=== PATIENT | male | born 1955 | race Caucasian/White ===

== ENCOUNTER 2018-07-14 18:41 | Emergency (ER) | payer BC ==
[2018-07-14] MEDS ORDERED: ASPIRIN 81 MG PO STA (19:20)
[2018-07-14] MEDS ORDERED: SODIUM CHLORIDE 0.9% 1,000 ML IV STA (19:20)
[2018-07-14 19:48] LABS: Basophils % (A) 0 %; Eosinophils # (A) 0.1 k/uL (0-0.7); Eosinophils % (A) 3 %; HCT 40.8 % (39.0-53.0); HGB 13.8 gm/dL (13.0-17.5); Lymphocytes # (A) 1.1 k/uL (1.0-4.8); Lymphocytes % (A) 28 %; MCH 32.2 pg (25.0-35.0); MCV 94.9 fL (80.0-100.0); Mean Platelet Volume 6.4; Monocytes # (A) 0.3 k/uL (0-1.0); Monocytes % (A) 7 %; Neutrophils # (A) 2.4 k/uL (1.3-7.7); Neutrophils % (A) 60 %; Platelet Count 139 k/uL (150-450); WBC 4.1 k/uL (3.8-10.6)
--- NOTE | 2018-07-14 20:00 | XR ---
EXAMINATION TYPE: XR chest 2V DATE OF EXAM: 07/14/2018 COMPARISON: NONE HISTORY: Chest pain TECHNIQUE: Frontal and lateral views of the chest are obtained. FINDINGS: Heart and mediastinum are normal. Lungs are clear. Diaphragm is normal. There are chest le ads. Bony thorax is intact. IMPRESSION: Normal chest.
[2018-07-14 20:06] LABS: ALT 28 U/L (21-72); AST 33 U/L (17-59); Albumin 4.3 g/dL (3.5-5.0); Alkaline Phosphatase 37 U/L (38-126); Amylase 32 U/L (30-110); Anion Gap 10 mmol/L; Blood Urea Nitrogen 14 mg/dL (9-20); Calcium 9.2 mg/dL (8.4-10.2); Carbon Dioxide 24 mmol/L (22-30); Chloride 108 mmol/L (98-107); Glucose 93 mg/dL (74-99); Lipase 77 U/L (23-300); Magnesium 2.1 mg/dL (1.6-2.3); Potassium 4.5 mmol/L (3.5-5.1); Sodium 142 mmol/L (137-145); Total Bilirubin 0.5 mg/dL (0.2-1.3)
[2018-07-14 20:08] LABS: INR 0.9 (<1.2); Prothrombin Time 9.7 sec (9.0-12.0)
[2018-07-14 20:09] LABS: Partial Thromboplastin Time 21.8 sec (22.0-30.0)
[2018-07-14 20:10] LABS: Creatine Kinase 177 U/L (55-170)
[2018-07-14 20:21] LABS: Creatine Kinase MB 1.3 ng/mL (0.0-2.4)
[2018-07-14 20:22] LABS: Troponin I <0.012 ng/mL (0.000-0.034)
--- NOTE | 2018-07-14 21:19 | ED ---
General Adult HPI - General Chief complaint: Shortness of Breath Stated complaint: aspirated Time Seen by Provider: 07/14/18 19:00 Source: patient, RN notes reviewed Mode of arrival: ambulatory Limitations: no limitations - History of Present Illness Initial comments: 62-year-old male with a past medical history of GERD presents to the emergency department for a chief complaint of a choking episode occurring about one hour prior to arrival. Patient states he had 4 mixed drinks earlier today. He states that his family will come up from sleeping on the couch. His family states he seems somewhat confused at the time. Agree that this could be due to the alcohol. According to patient and family, he started to drink some water and began to choke. At that time he coughed up some food. During this choking attack family states he did appear pale, no diaphoresis. Patient denies any chest pain or shortness of breath. Patient denies any radiating chest pain. Patient does not have a cardiac history. He is not a smoker, no diabetes. Patient has no other complaints at this time including shortness of breath, chest pain, abdominal pain, nausea or vomiting, headache, or visual changes. - Related Data Allergies Allergy/AdvReac Type Severity Reaction Status Date / Time No Known Allergies Allergy Verified 07/14/18 18:46 Review of Systems ROS Statement: Those systems with pertinent positive or pertinent negative responses have been documented in the HPI. ROS Other: All systems not noted in ROS Statement are negative. Past Medical History Past Medical History: GERD/Reflux History of Any Multi-Drug Resistant Organisms: None Reported Past Surgical History: No Surgical Hx Reported Past Psychological History: No Psychological Hx Reported Smoking Status: Never smoker Past Alcohol Use History: Daily Past Drug Use History: None Reported General Exam Limitations: no limitations General appearance: alert, in no apparent distress (Patient is well-appearing, he is cooperative and pleasant. Holding a conversation without difficulty.) Head exam: Present: atraumatic, normocephalic, normal inspection Eye exam: Present: normal appearance, PERRL, EOMI. Absent: scleral icterus, conjunctival injection, periorbital swelling ENT exam: Present: normal exam, normal oropharynx (Patent, non erythematous, uvula midline), mucous membranes moist Neck exam: Present: normal inspection, full ROM. Absent: tenderness, meningismus, lymphadenopathy Respiratory exam: Present: normal lung sounds bilaterally. Absent: respiratory distress, wheezes, rales, rhonchi, stridor Cardiovascular Exam: Present: regular rate, normal rhythm, normal heart sounds. Absent: systolic murmur, diastolic murmur, rubs, gallop, clicks GI/Abdominal exam: Present: soft, normal bowel sounds. Absent: distended, tenderness, guarding, rebound, rigid Neurological exam: Present: alert, oriented X3, CN II-XII intact Psychiatric exam: Present: normal affect, normal mood Course Vital Signs 07/14/18 18:43 Temperature 97.5 F L Pulse Rate 75 Respiratory 20 Rate Blood Pressure 138/88 O2 Sat by Pulse 96 Oximetry EKG Findings - EKG Comments: EKG Findings:: EKG shows a normal sinus rhythm, ventricular rate 63, OR interval 154, QTc 474, right bundle branch block noted. Medical Decision Making - Medical Decision Making 62-year-old male with a past medical history of GERD, no chronic history presents for a chief complaint of choking episode. Patient began to choke on food earlier today. Patient has not had a scope done by GI. He states this has happened multiple times before. He has had some alcoholic drinks today and appeared somewhat confused when he was awoken from the couch the family became concerned. They do admit that this is possibly related to the alcoholic drinks vitals are within acceptable limits. Patient is well appearing. CBC and CMP are unremarkable. EKG shows a normal sinus rhythm with a ventricular rate of 63. There is right bundle branch block noted which patient was educated to follow up with primary about. Troponin negative. No suspicion for cardiac cause this patient did not have any chest pain shortness of breath and seemed confused only after eating awoken from the couch after having a colic drinks. No diaphoresis. No significant Risk factors. Patient is a never smoker. Chest x-ray negative. Patient currently denying any sensation of foreign body. States he is feeling completely normal. At this time patient will follow up with primary care for right bundle branch block. He will follow up with GI specialist for possible upper endoscopy. He will return if he has any worsening symptoms of shortness of breath, chest pain, or foreign body sensation in throat which he agrees with. Discussed case with Dr. Carlson. - Lab Data Result diagrams: 07/14/18 19:35 07/14/18 19:35 Lab Results 07/14/18 07/14/1818 Range/Units 19:35 19:35 19:35 WBC 4.1 (3.8-10.6) k/uL RBC 4.30 (4.30-5.90) m/uL Hgb 13.8 (13.0-17.5) gm/dL Hct 40.8 (39.0-53.0) % MCV 94.9 (80.0-100.0) fL MCH 32.2 (25.0-35.0) pg MCHC 34.0 (31.0-37.0) g/dL RDW 13.0 (11.5-15.5) % Plt Count 139 L (150-450) k/uL Neutrophils % 60 % Lymphocytes % 28 % Monocytes % 7 % Eosinophils % 3 % Basophils % 0 % Neutrophils # 2.4 (1.3-7.7) k/uL Lymphocytes # 1.1 (1.0-4.8) k/uL Monocytes # 0.3 (0-1.0) k/uL Eosinophils # 0.1 (0-0.7) k/uL Basophils # 0.0 (0-0.2) k/uL PT (9.0-12.0) sec INR (<1.2) APTT (22.0-30.0) sec Sodium 142 (137-145) mmol/L Potassium 4.5 (3.5-5.1) mmol/L Chloride 108 H (98-107) mmol/L Carbon Dioxide 24 (22-30) mmol/L Anion Gap 10 mmol/L BUN 14 (9-20) mg/dL Creatinine 0.89 (0.66-1.25) mg/dL Est GFR (CKD-EPI)AfAm >90 (>60 ml/min/1.73 sqM) Est GFR (CKD-EPI)NonAf >90 (>60 ml/min/1.73 sqM) Glucose 93 (74-99) mg/dL Calcium 9.2 (8.4-10.2) mg/dL Magnesium 2.1 (1.6-2.3) mg/dL Total Bilirubin 0.5 (0.2-1.3) mg/dL AST 33 (17-59) U/L ALT 28 (21-72) U/L Alkaline Phosphatase 37 L (38-126) U/L Total Creatine Kinase 177 H (55-170) U/L CK-MB (CK-2) 1.3 (0.0-2.4) ng/mL CK-MB (CK-2) Rel Index 0.7 Troponin I <0.012 (0.000-0.034) ng/mL Total Protein 7.0 (6.3-8.2) g/dL Albumin 4.3 (3.5-5.0) g/dL Amylase 32 (30-110) U/L Lipase 77 (23-300) U/L 07/14/18 Range/Units 19:35 WBC (3.8-10.6) k/uL RBC (4.30-5.90) m/uL Hgb (13.0-17.5) gm/dL Hct (39.0-53.0) % MCV (80.0-100.0) fL MCH (25.0-35.0) pg MCHC (31.0-37.0) g/dL RDW (11.5-15.5) % Plt Count (150-450) k/uL Neutrophils % % Lymphocytes % % Monocytes % % Eosinophils % % Basophils % % Neutrophils # (1.3-7.7) k/uL Lymphocytes # (1.0-4.8) k/uL Monocytes # (0-1.0) k/uL Eosinophils # (0-0.7) k/uL Basophils # (0-0.2) k/uL PT 9.7 (9.0-12.0) sec INR 0.9 (<1.2) APTT 21.8 L (22.0-30.0) sec Sodium (137-145) mmol/L Potassium (3.5-5.1) mmol/L Chloride (98-107) mmol/L Carbon Dioxide (22-30) mmol/L Anion Gap mmol/L BUN (9-20) mg/dL Creatinine (0.66-1.25) mg/dL Est GFR (CKD-EPI)AfAm (>60 ml/min/1.73 sqM) Est GFR (CKD-EPI)NonAf (>60 ml/min/1.73 sqM) Glucose (74-99) mg/dL Calcium (8.4-10.2) mg/dL Magnesium (1.6-2.3) mg/dL Total Bilirubin (0.2-1.3) mg/dL AST (17-59) U/L ALT (21-72) U/L Alkaline Phosphatase (38-126) U/L Total Creatine Kinase (55-170) U/L CK-MB (CK-2) (0.0-2.4) ng/mL CK-MB (CK-2) Rel Index Troponin I (0.000-0.034) ng/mL Total Protein (6.3-8.2) g/dL Albumin (3.5-5.0) g/dL Amylase (30-110) U/L Lipase (23-300) U/L - EKG Data -: EKG Interpreted by Me (and Dr Carlson) When compared to previous EKG there are: previous EKG unavailable Disposition Clinical Impression: Choked on food Disposition: HOME SELF-CARE Condition: Good Instructions: Esophageal Foreign Body (ED), Food Impaction (ED) Additional Instructions: Please follow up with GI in 1-2 days. Please return to the emergency department if you have any worsening symptoms including foreign body sensation in the throat. Is patient prescribed a controlled substance at d/c from ED?: No Referrals: Jassi Grace DO [Primary Care Provider] - 1-2 days Sarah Rivera MD [STAFF PHYSICIAN] - 1-2 days Time of Disposition: 21:18
[2018-07-14 21:49] VITALS: BP 124/84; PULSE 76; RESP 16; TEMP 98
== END 2018-07-14 21:35 | disposition home or self-care (01) ==
LOC: EC 18:41
DX: T17.928A Food in respiratory tract, part unspecified causing other injury, initial encounter (principal); I45.10 Unspecified right bundle-branch block
CPT/HCPCS: 36415; 71046; 80053; 82150; 82550; 82553; 83690; 83735; 84484; 85025; 85610; 85730; 93005; 96360; 99285

== ENCOUNTER → 2018-11-29 | Outpatient (CLI) | payer BC ==
--- NOTE | 2018-11-30 11:23 | P.STRESS ---
- Stress Test Note Stress Test Results/Findings: Exam Performed: stress echo exercise Exam Date: 11/29/18 Reason for Exam: RBBB Height: 5 ft 9 in Weight: 79.379 kg Protocol: STRESS ECHO Stage: IV Duration of Exercise: 12:00 Resting Heart Rate: 72 Resting Blood Pressure: 144/84 Maximum Achieved Heart Rate: 159 Maximum Achieved Blood Pressure: 175/69 85% PMHR: 135 100% PMHR: 159 METS: 12.1 Technologist Comment: Stress Test Results/Findings: Baseline heart is 72 beats a minute, Baseline blood pressure 144/84 mmHg Baseline twelve-lead ECG shows normal sinus rhythm with a right bundle branch block pattern and occasional PVCs of a left bundle branch block pattern Patient exercised on a Jared protocol for 12 minutes achieving a peak heart rate 159 beats a minute Normal blood pressure response to exercise There was no ECG also ischemia Occasional PVCs continued No nonsustained ventricular tachycardia Baseline 2-D echo images showed normal LV size and systolic function without segmental wall motion abnormalities At peak exercise there was augmentation of overall LV contractility without developing any wall motion abnormalities @Recovery reasonably global LV systolic function with normal Excellent exercise capacity No ECG or echocardiographic evidence for ischemia Occasional PVCs noted post during rest as well as exercise
== END | disposition home or self-care (01) ==
LOC: RADNMMAIN 09:53
PROVIDERS: ATTEND Internal Medicine Cardiovascular Disease
DX: I45.10 Unspecified right bundle-branch block (principal); Z91.89 Other specified personal risk factors, not elsewhere classified; Z82.49 Family history of ischemic heart disease and other diseases of the circulatory system
CPT/HCPCS: 93351

== ENCOUNTER → 2020-02-28 | Outpatient (CLI) | payer BC | END | disposition home or self-care (01) | LOC: LABWHC1 11:04 | PROVIDERS: ATTEND Family Medicine | DX: R05 Cough (principal) | CPT/HCPCS: U0003; C9803 ==

== ENCOUNTER 2023-04-04 23:01 | Emergency (ER) | payer BC, MEDICARE ==
[2023-04-04 23:07] VITALS: RESP 19
[2023-04-04 23:27] LABS: Basophils % (A) 0 %; Eosinophils # (A) 0.1 k/uL (0-0.7); Eosinophils % (A) 3 %; HCT 38.7 % (39.0-53.0); HGB 13.4 gm/dL (13.0-17.5); Lymphocytes % (A) 29 %; MCH 34.3 pg (25.0-35.0); MCHC 34.6 g/dL (31.0-37.0); MCV 99.2 fL (80.0-100.0); Mean Platelet Volume 7.1; Monocytes # (A) 0.4 k/uL (0-1.0); Monocytes % (A) 10 %; Neutrophils # (A) 1.9 k/uL (1.3-7.7); Neutrophils % (A) 54 %; Platelet Count 132 k/uL (150-450); RDW 13.7 % (11.5-15.5); WBC 3.5 k/uL (3.8-10.6)
[2023-04-04 23:39] LABS: African American GFR (CKD) >90 (>60 ml/min/1.73 sqM); Anion Gap 6 mmol/L; Blood Urea Nitrogen 17 mg/dL (9-20); Calcium 8.4 mg/dL (8.4-10.2); Carbon Dioxide 25 mmol/L (22-30); Chloride 107 mmol/L (98-107); Glucose 118 mg/dL (74-99); Non-African American GFR(CKD) 85 (>60 ml/min/1.73 sqM); Potassium 3.9 mmol/L (3.5-5.1); Sodium 138 mmol/L (137-145)
--- NOTE | 2023-04-04 23:44 | ED ---
General Adult HPI - General Chief complaint: Syncope Stated complaint: FLU LIKE, SYNCOPE Time Seen by Provider: 04/04/23 23:05 Source: patient, EMS Mode of arrival: EMS Limitations: no limitations - History of Present Illness Initial comments: Dictation was produced using [employer] dictation software. please excuse any grammatical, word or spelling errors. Chief Complaint: 67-year-old male presents to the ER for syncope History of Present Illness: Is a 67-year-old male he has past medical history of hypertension. No significant comorbidities. Patient was falling asleep on the couch. He went to get up to go to the bedroom to go to bed when he stumbled and gently fell to the ground. Patient denies any injury. reports that he did show a few seconds of jerking movements. Patient has no history of seizure. Patient has any history of cardiac disease. Patient states that since being in the ER he has felt fine. was concerned called EMS and brought patient to the ER. tested positive for coronavirus 10 days ago. The ROS documented in this emergency department record has been reviewed and confirmed by me. Those systems with pertinent positive or negative responses have been documented in the HPI. All other systems are other negative and/or noncontributory. - Related Data Allergies Allergy/AdvReac Type Severity Reaction Status Date / Time No Known Allergies Allergy Verified 07/14/18 18:46 Review of Systems ROS Statement: Those systems with pertinent positive or pertinent negative responses have been documented in the HPI. ROS Other: All systems not noted in ROS Statement are negative. Past Medical History Past Medical History: GERD/Reflux History of Any Multi-Drug Resistant Organisms: None Reported Past Surgical History: No Surgical Hx Reported Past Psychological History: No Psychological Hx Reported Smoking Status: Former smoker Past Alcohol Use History: Daily Past Drug Use History: None Reported General Exam - General Exam Comments Initial Comments: PHYSICAL EXAM: General Impression: Alert and oriented x3, not in acute distress HEENT: Normocephalic atraumatic, extra-ocular movements intact, pupils equal and reactive to light bilaterally, mucous membranes moist. Cardiovascular: Heart regular rate and rhythm Chest: Able to complete full sentences, no retractions, no tachypnea Abdomen: abdomen soft, non-tender, non-distended, no organomegaly Musculoskeletal: Pulses present and equal in all extremities, no peripheral edema Motor: no focal deficits noted Neurological: CN II-XII grossly intact, no focal motor or sensory deficits noted Skin: Intact with no visualized rashes Psych: Normal affect and mood Limitations: no limitations Course Vital Signs 04/04/23 04/05/23 04/05/23 23:04 00:08 01:01 Pulse Rate 81 88 Respiratory 19 19 Rate Blood Pressure 139/89 Blood Pressure 125/79 [Right Arm Sitting] Blood Pressure 122/81 [Right Arm Standing] Blood Pressure 122/75 [Right Arm Supine] O2 Sat by Pulse 96 Oximetry EKG Findings - EKG Comments: EKG Findings:: My EKG interpretation: Ventricular rate 82, sinus rhythm,. 169, 70, QTc 47, Right Bundle Branch Block with Some PVCs. No VT prolongation, no QTC prolongation, no ST or T-wave changes noted. EKG compared to July 14, 2018 showing no changes. Overall, this EKG is unremarkable Medical Decision Making - Medical Decision Making Was pt. sent in by a medical professional or institution (, PA, MACHINE ASSEMBLER FOR [employer], urgent care, hospital, or half-way...) When possible be specific @ -No Did you speak to anyone other than the patient for history (EMS, parent, family, police, friend...)? What history was obtained from this source @ -No Did you review nursing and triage notes (agree or disagree)? Why? @ -I reviewed and agree with nursing and triage notes Were old charts reviewed (outside hosp., previous admission, EMS record, old EKG, old radiological studies, urgent care reports/EKG's, half-way records)? Report findings @ -No old charts were reviewed Differential Diagnosis (chest pain, altered mental status, abdominal pain women, abdominal pain men, vaginal bleeding, musculoskeletal, weakness, fever, dyspnea, syncope, headache, dizziness, GI bleed, back pain, seizure, CVA, palpatations, mental health)? @ -Differential Dyspnea: Coronary syndrome, arrhythmia, tamponade, asthma, COPD, pulmonary embolism, pneumonia, pneumothorax, pulmonary effusion, anaphylaxis, diabetic ketoacidosis, flailed chest, pulmonary contusion, diaphragmatic rupture, anemia, neuromuscu lar, this is not meant to be an all-inclusive list. EKG interpreted by me (3pts min.). @ -As above X-rays interpreted by me (1pt min.). @ -2 view chest x-ray was unremarkable CT interpreted by me (1pt min.). @ -None done U/S interpreted by me (1pt. min.). @ -None done What testing was considered but not performed or refused? (CT, X-rays, U/S, labs)? Why? @ -None What meds were considered but not given or refused? Why? @ -None Did you discuss the management of the patient with other professionals (professionals i.e. DrRandy, PA, MACHINE ASSEMBLER [employer], lab, RT, psych nurse, 7th grade social studies teacher, clinical courier, teacher, legal compliance officer, case finishing machine adjuster)? Give summary @ -No Was smoking cessation discussed for >3mins.? @ -No Was critical care preformed (if so, how long)? @ -No Were there social determinants of health that impacted care today? How? (Homelessness, low income, unemployed, alcoholism, drug addiction, transportation, low edu. Level, literacy, decrease access to med. care, prison, rehab)? @ -No Was there de-escalation of care discussed even if they declined (Discuss DNR or withdrawal of care, Hospice)? DNR status @ -No What co-morbidities impacted this encounter? (DM, HTN, Smoking, COPD, CAD, Cancer, CVA, ARF, Chemo, Hep., AIDS, mental health diagnosis, sleep apnea, morbid obesity)? @ -None Was patient admitted / discharged? Hospital course, mention meds given and route, prescriptions, significant lab abnormalities, going to OR and other pertinent info. @ -67-year-old male presents emergency Department with syncopal episode after trying to stand up. Vital signs upon arrival are within acceptable limits. Patient asymptomatic at bedside he does not have any cardiac history. Laboratory evaluation shows mild leukopenia of 3.5. Exacerbation has baseline platelet level. Rest of labs within acceptable limits. Orthostatic blood pressures are normal. Patient observed in emergency department for approximately 2 hours. Reevaluation at bedside at 1:15 AM found to be symmetric admission. Disposition options were discussed patient is agreeable for discharge. Undiagnosed new problem with uncertain prognosis? @ -No Drug Therapy requiring intensive monitoring for toxicity (Heparin, Nitro, Insulin, Cardizem)? @ -No Were any procedures done? @ -No Diagnosis/symptom? Acute, or Chronic, or Acute on Chronic? Uncomplicated (without systemic symptoms) or Complicated (systemic symptoms)? @ -1. Syncopal episode, 2. URI Side effects of treatment? @ -No Exacerbation, Progression, or Severe Exacerbation? @ -No Poses a threat to life or bodily function? How? (Chest pain, [place], [place], pneumonia, PE, COPD, DKA, ARF, appy, cholecystitis, CVA, Diverticulitis, Homicidal, S uicidal, threat to staff... and all critical care pts) @ -No - Lab Data Result diagrams: 04/04/23 23:18 04/04/23 23:18 Lab Results 04/04/23 04/04/23 04/04/23 Range/Units 23:08 23:18 23:18 WBC 3.5 L (3.8-10.6) k/uL RBC 3.90 L (4.30-5.90) m/uL Hgb 13.4 (13.0-17.5) gm/dL Hct 38.7 L (39.0-53.0) % MCV 99.2 (80.0-100.0) fL MCH 34.3 (25.0-35.0) pg MCHC 34.6 (31.0-37.0) g/dL RDW 13.7 (11.5-15.5) % Plt Count 132 L (150-450) k/uL MPV 7.1 Neutrophils % 54 % Lymphocytes % 29 % Monocytes % 10 % Eosinophils % 3 % Basophils % 0 % Neutrophils # 1.9 (1.3-7.7) k/uL Lymphocytes # 1.0 (1.0-4.8) k/uL Monocytes # 0.4 (0-1.0) k/uL Eosinophils # 0.1 (0-0.7) k/uL Basophils # 0.0 (0-0.2) k/uL Sodium 138 (137-145) mmol/L Potassium 3.9 (3.5-5.1) mmol/L Chloride 107 (98-107) mmol/L Carbon Dioxide 25 (22-30) mmol/L Anion Gap 6 mmol/L BUN 17 (9-20) mg/dL Creatinine 0.94 (0.66-1.25) mg/dL Est GFR (CKD-EPI)AfAm >90 (>60 ml/min/1.73 sqM) Est GFR (CKD-EPI)NonAf 85 (>60 ml/min/1.73 sqM) Glucose 118 H (74-99) mg/dL Calcium 8.4 (8.4-10.2) mg/dL Troponin I (0.000-0.034) ng/mL Influenza Type A (PCR) Not Detected (Not Detectd) Influenza Type B (PCR) Not Detected (Not Detectd) RSV (PCR) Not Detected (Not Detectd) SARS-CoV-2 (PCR) Not Detected (Not Detectd) 04/04/23 Range/Units 23:18 WBC (3.8-10.6) k/uL RBC (4.30-5.90) m/uL Hgb (13.0-17.5) gm/dL Hct (39.0-53.0) % MCV (80.0-100.0) fL MCH (25.0-35.0) pg MCHC (31.0-37.0) g/dL RDW (11.5-15.5) % Plt Count (150-450) k/uL MPV Neutrophils % % Lymphocytes % % Monocytes % % Eosinophils % % Basophils % % Neutrophils # (1.3-7.7) k/uL Lymphocytes # (1.0-4.8) k/uL Monocytes # (0-1.0) k/uL Eosinophils # (0-0.7) k/uL Basophils # (0-0.2) k/uL Sodium (137-145) mmol/L Potassium (3.5-5.1) mmol/L Chloride (98-107) mmol/L Carbon Dioxide (22-30) mmol/L Anion Gap mmol/L BUN (9-20) mg/dL Creatinine (0.66-1.25) mg/dL Est GFR (CKD-EPI)AfAm (>60 ml/min/1.73 sqM) Est GFR (CKD-EPI)NonAf (>60 ml/min/1.73 sqM) Glucose (74-99) mg/dL Calcium (8.4-10.2) mg/dL Troponin I <0.012 (0.000-0.034) ng/mL Influenza Type A (PCR) (Not Detectd) Influenza Type B (PCR) (Not Detectd) RSV (PCR) (Not Detectd) SARS-CoV-2 (PCR) (Not Detectd) Disposition Clinical Impression: Syncope Disposition: HOME SELF-CARE Condition: Good Instructions (If sedation given, give patient instructions): Syncope (ED) Is patient prescribed a controlled substance at d/c from ED?: No Referrals: Jassi Grace DO [Primary Care Provider] - 1-2 days Time of Disposition: 01:14
--- NOTE | 2023-04-05 01:40 | XR ---
EXAM: XR Chest, 2 Views CLINICAL HISTORY: ITS.REASON XR Reason: cough TECHNIQUE: Frontal and lateral views of the chest. COMPARISON: 07/14/2018 FINDINGS: Lungs: Unremarkable. No consolidation. Pleural space: Unremarkable. No pneumothorax. No pleural effusions. Heart: Unremarkable. No cardiomegaly. Mediastinum: Unremarkable. Bones/joints: No acute osseous abnormalities. IMPRESSION: Normal chest.
[2023-04-05 01:51] VITALS: BP 129/89; PULSE 89
== END 2023-04-05 02:01 | disposition home or self-care (01) ==
LOC: EC 23:01
DX: R55 Syncope and collapse (principal); I10 Essential (primary) hypertension; Z87.891 Personal history of nicotine dependence; Z20.822 Contact with and (suspected) exposure to COVID-19; W18.30XA Fall on same level, unspecified, initial encounter
CPT/HCPCS: 36415; 71046; 80048; 84484; 85025; 87636; 93005; 99285